=== PATIENT | female | born 1990 | race African-American/Black ===

== ENCOUNTER 2016-06-01 20:56 | Emergency (ER) | payer MEDICAID ==
[~2016-06-01] VITALS: Ht 157.5 cm; Wt 111.0 kg
[~2016-06-01 20:56] MED LIST: ACET-2178 PO
[2016-06-02] MEDS ORDERED: KETOROLAC 60MG/2ML VIAL IM ONE (00:30)
[2016-06-02] MEDS ORDERED: CYCLOBENZAPRINE 10MG TABLET PO ONE (00:45)
[2016-06-02] MEDS ORDERED: IBUPROFEN 800MG TABLET PO ONE (00:45)
[2016-06-02 01:50] VITALS: BP 117/59
== END 2016-06-02 01:59 | disposition home or self-care (01) ==
LOC: ER 20:57
DX: S83.92XA Sprain of unspecified site of left knee, initial encounter (principal); M25.552 Pain in left hip; Z79.1 Long term (current) use of non-steroidal anti-inflammatories (NSAID); Z98.890 Other specified postprocedural states; W01.0XXA Fall on same level from slipping, tripping and stumbling without subsequent striking against object, initial encounter; Y93.89 Activity, other specified; Y99.8 Other external cause status; Y92.89 Other specified places as the place of occurrence of the external cause
CPT/HCPCS: 73502; 73562; 81025; 99284; J1885

== ENCOUNTER 2016-10-05 13:25 | Emergency (ER) | payer MEDICAID ==
[~2016-10-05] VITALS: Ht 157.5 cm; Wt 113.0 kg
[2016-10-05] MEDS ORDERED: IBUPROFEN 600MG TABLET PO STA (18:07)
[2016-10-05] MEDS ORDERED: ONDANSETRON 4MG ODT PO ONE (18:15)
[2016-10-05] MEDS ORDERED: HYDROCODONE/ACETAMINOPHEN 5/325MG TABLET PO ONE (20:00)
[2016-10-05 21:15] VITALS: BP 125/66
== END 2016-10-05 21:15 | disposition home or self-care (01) ==
LOC: ER 19:39
DX: R51 Headache (principal); M25.562 Pain in left knee; V43.62XA Car passenger injured in collision with other type car in traffic accident, initial encounter; Y93.89 Activity, other specified; Y92.488 Other paved roadways as the place of occurrence of the external cause
CPT/HCPCS: 70450; 70486; 72125; 73562; 81025; 99284; J7030; L1830; Q0162; Z7610

== ENCOUNTER 2021-06-13 23:03 | Emergency (ER) | payer MEDICAID ==
[~2021-06-13] VITALS: Ht 157.5 cm; Wt 120.0 kg
[~2021-06-13 23:03] MED LIST changes: -ACET-2178 PO; +TOPUD PO
[2021-06-13] MEDS ORDERED: MORPHINE SULFATE 4 MG/ML CPJ (NOT FOR IM USE) IV ONE (23:30)
[2021-06-13 23:36] LABS: BASOPHILS % 0.2 % (0.0-2.0); EOSINOPHILS % 0.9 % (0.0-5.0); HEMATOCRIT. 33.9 % (36.0-48.0); HEMOGLOBIN. 11.3 g/dL (12.0-16.0); LYMPHOCYTES % 23.3 % (20.0-50.0); MEAN CORPUSCULAR HEMOGLOBIN 28.5 pg (28.0-32.0); MEAN CORPUSCULAR VOLUME 85.2 fL (81.0-99.0); MEAN PLATELET VOLUME 8.9 fl (7.4-10.4); MONOCYTES % 6.3 % (2.0-8.0); NEUTROPHILS % 69.3 % (40.0-76.0); PLATELET 269 x1000/uL (130-400); RED BLOOD CELL COUNT 3.97 mill/uL (4.2-5.4); RED CELL DISTRIBUTION WIDTH 15.1 % (11.6-14.6)
[2021-06-13 23:48] LABS: CHLORIDE 109 mEq/L (98-107)
[2021-06-13 23:55] LABS: HCG SCREEN NEGATIVE
[2021-06-14] MEDS ORDERED: ACETAMINOPHEN WITH CODEINE 300/30MG TABLET PO ONE (00:15)
[2021-06-14] MEDS ORDERED: ENOXAPARIN 80MG/0.8ML SYR SUBCUT ONE (01:30)
[2021-06-14] MEDS ORDERED: HYDRALAZINE 20MG/ML VIAL IV ONE (01:30)
[2021-06-14 02:00] VITALS: BP 118/45
[2021-06-14] MEDS ORDERED: TOPUD PO (02:00)
== END 2021-06-14 03:35 | disposition home or self-care (01) ==
LOC: ER 23:03
DX: R10.84 Generalized abdominal pain (principal); M25.512 Pain in left shoulder
CPT/HCPCS: 36415; 73030; 74176; 80053; 84703; 85025; 99285

== ENCOUNTER 2022-06-16 06:52 | Observation (INO) | payer MEDICAID ==
[~2022-06-16] VITALS: Ht 157.5 cm; Wt 125.2 kg
== END 2022-06-16 11:42 | disposition home or self-care (01) ==
LOC: 8 EST LDRP 06:52
PROVIDERS: ADMIT Obstetrics & Gynecology; ATTEND Obstetrics & Gynecology
DX: O26.892 Other specified pregnancy related conditions, second trimester (principal); R10.30 Lower abdominal pain, unspecified; Z3A.26 26 weeks gestation of pregnancy; Z79.899 Other long term (current) drug therapy
CPT/HCPCS: 59025; 76805; 99281; G0378